=== PATIENT | female | born 1985 | race Caucasian/White ===

== ENCOUNTER 2017-07-08 12:11 | Observation (INO) | payer BC, OTHER ==
[2017-07-08] MEDS ORDERED: Fentanyl 100 MCG/2 ML VIAL ONE (12:33)
[2017-07-08] MEDS ORDERED: Ondansetron HCl/PF 4 MG/2 ML Vial ONE (12:33)
[2017-07-08 12:56] LABS: #Basophils 0.1 thou/uL (0.0-0.2); #Eosinphils 0.1 thou/uL (0.0-0.7); #Lymphocytes 1.8 thou/uL (1.20-3.40); #Monocytes 0.5 thou/uL (0.11-0.59); #Neutrophils 8.7 thou/uL (1.40-6.50); %Basophils 1.1 % (0.0-1.0); %Eosinophils 0.6 % (0.0-10.0); %Monocytes 4.4 % (0.0-10.0); Hemoglobin 14.2 g/dL (12.0-16.0); Mean Corpuscular HGB CONC 35.3 g/dL (32.0-36.0); Mean Corpuscular Hemoglobin 29.4 pg (27.0-31.0); Mean Corpuscular Volume 83.3 fl (81.0-99.0); Mean Platelet Volume 7.8 fL (7.4-10.4); Platelet Count 248 thou/uL (130-400); RBC Distribution Width 11.6 % (11.5-14.5); Red Blood Cell (RBC) Count 4.84 mill/uL (4.20-5.40); White Blood Cell (WBC) Count 11.1 thou/uL (4.8-10.8)
[2017-07-08 13:13] LABS: ALT (SGPT) 21 U/L (8-55); AST (SGOT) 22 U/L (5-34); Albumin 4.3 g/dL (3.5-5.0); Alkaline Phosphatase 74 U/L (40-150); Anion Gap 16 mmol/L (10-20); BUN (Urea Nitrogen) 10 mg/dL (7.0-18.7); Bilirubin, Total 0.9 mg/dL (0.2-1.2); Calc. Creatinine Clearance 0 mL/min (70-130); Calcium 9.4 mg/dL (7.8-10.44); Carbon Dioxide 18 mmol/L (22-29); Chloride 109 mmol/L (98-107); Estimated GFR-MDRD Greater than 90; Globulin 3.6 g/dL (2.4-3.5); Glucose 107 mg/dL (70-105); Lipase 35 U/L (8-78); Potassium 4.1 mmol/L (3.5-5.1); Protein, Total 7.9 g/dL (6.0-8.3); Sodium 139 mmol/L (136-145)
[2017-07-08 14:33] LABS: BHCG - Serum Negative (NEGATIVE); Pregs Control Background? CLEAR/WHITE (CLR/WHITE); Pregs Control Bar Appear? YES (CONTROL BAR)
--- NOTE | 2017-07-08 15:11 | ULT ---
GALLBLADDER ULTRASOUND: HISTORY: Right upper quadrant pain. COMPARISON: None. TECHNIQUE: Utilizing a multihertz transducer, sonographic imaging of the right upper quadrant was performed in t he longitudinal and transverse plane. FINDINGS: Evaluation is overall limited by shadowing bowel gas. Hepatic parenchyma has a heterogeneous echotex ture which may be due to hepatic steatosis or hepatocellular disease. Right hepatic lobe measures 17 .7 cm. Within the lumen of the gallbladder, there are echogenic foci with posterior acoustic shadowing, comp atible with gallstones. There is a 1.4 cm stone in the neck of the gallbladder. Gallbladder wall is not thickened. No pericholecystic fluid. However, horse rider does report a positive Martinez's sign. Common bile duct diameter is 0.5 cm. Suboptimal evaluation of the right kidney. Suboptimal evaluation of the pancreas. IMPRESSION: Findings that are equivocal for cholecystitis. There may be a lodged stone in the neck of the gallbl adder. HIDA scan is recommended. POS: [facility]
[2017-07-08] MEDS ORDERED: diphenhydrAMINE 25 MG CAP PO PRN (16:59)
[2017-07-08] MEDS ORDERED: Calcium Carbonate 500 MG ChewTAB PO PRN (16:59)
[2017-07-08] MEDS ORDERED: Acetaminophen 325 MG TAB PO PRN (16:59)
[2017-07-08] MEDS ORDERED: Ondansetron HCl/PF 4 MG/2 ML Vial IVP PRN (16:59)
[2017-07-08] MEDS ORDERED: Ondansetron ODT 4 MG TAB PO PRN (16:59)
[2017-07-08] MEDS ORDERED: Milk Of Magnesia 30 ML UDCUP PO PRN (16:59)
[2017-07-08] MEDS ORDERED: Acetaminophen 650 MG Suppository PR PRN (16:59)
[2017-07-08] MEDS ORDERED: Sodium Chloride 0.9% 1,000 ML IV SCH (17:02)
[2017-07-08] MEDS ORDERED: HYDROcodone/Acetaminophen 5/325 mg Tablet PO PRN ×2 (17:02)
[2017-07-08 17:10] VITALS: BMI 32.5
--- NOTE | 2017-07-08 17:10 | PDOC.FPRHP ---
- History of Present Illness Chief Complaint: Abdominal pain History of Present Illness: 31 year old female with PMH back injury in 2011 presented to [facility] ED with complaints of abdominal pain that started around 04:00. Pain is localized to RUQ. Patient describes the pain as sharp, intermittent and sporadic. She took pepcid at 05:00 with no relief of symptoms. Her last BM was yesterday. She is currently on her period. Associated symptoms include nausea and vomiting. Last vomit was around 1400. She has not tried to eat due to pain being so intense. She states pain is intermittent with pain meds but constant without. She has never had a similar pain and denies any recent pain after eating. Without pain meds, the pain radiates to her back. ED Course: Abdominal ultrasound showed findings equivocal for choleycystitis. There may be a lodged stone in the neck of the gallbladder. HIDA scan was recommended. Patient was given 4 mg zofran, 2 mg dilaudid and 100 mcg of fentanyl in outside ED. - Allergies/Adverse Reactions Allergies Allergy/AdvReac Type Severity Reaction Status Date / Time morphine Allergy Verified 07/08/17 17:11 - Home Medications Medication Instructions Recorded Confirmed Type No Known [No Known] 07/08/17 07/08/17 History - History PMHx: back injury- factured 4 vertebrae (2011)- no residual deficits PSHx: none FHx:mother/ father- Diabetes and HTN Social: Denies alcohol, drugs, or smoking. - Review of Systems General: denies: fever/chills, fatigue Eyes: denies: eye pain, vision changes ENT: denies: nasal congestion, rhinorrhea Respiratory: denies: cough, congestion, shortness of breath Cardiovascular: denies: chest pain, palpitation Gastrointestinal: reports: nausea, vomiting, abdominal pain. denies: diarrhea, constipation Genitourinary: denies: incontinence, dysuria Skin: denies: rashes, lesions, jaundice Musculoskeletal: reports: pain (back pain). denies: tenderness, swelling, arthritis/arthralgias Neurological: denies: numbness, weakness Psychological: denies: anxiety, depression - Vital signs Wt: 97.16 kg Selected Entries 07/08/17 16:54 Temperature 98.7 F Pulse Rate 87 Blood Pressure 115/57 L [Semi-Fowlers] Respiratory 24 H Rate O2 Sat by Pulse 100 Oximetry Oxygen Delivery Room Air Method - Physical Exam Constitutional: NAD, awake, alert and oriented, well developed HEENT: normocephalic and atraumatic, PERRLA, EOMI, conjunctiva clear, no scleral icterus Neck: supple, FROM Chest: no-tender to palpation Heart: RRR, normal S1/S2, no murmurs/rubs/gallops Lungs: CTAB, no respiratory distress, good air movement, no rales/rhonchi, no wheezing Abdomen: soft -Abdomen: tender to palpation in RUQ, +murphys. mildly tender diffusely, guarding in RUQ, no rigidity Musculoskeletal: normal structure, normal tone Neurological: no focal deficit, CN II-XII intact, normal sensation Skin: no rash/lesions, no jaundice Psychiatric: normal mood and affect FMR H&P: Results - Labs Result Diagrams: 07/08/17 12:45 07/08/17 19:39 Lab results: WBC 11.1 thou/uL (4.8-10.8) H 07/08/17 12:45 Hgb 14.2 g/dL (12.0-16.0) 07/08/17 12:45 Hct 40.3 % (36.0-47.0) 07/08/17 12:45 MCV 83.3 fl (81.0-99.0) 07/08/17 12:45 Plt Count 248 thou/uL (130-400) 07/08/17 12:45 Neutrophils % 78.0 % (42.0-75.0) H 07/08/17 12:45 Sodium 139 mmol/L (136-145) 07/08/17 12:45 Potassium 4.1 mmol/L (3.5-5.1) 07/08/17 12:45 Chloride 109 mmol/L (98-107) H 07/08/17 12:45 Carbon Dioxide 18 mmol/L (22-29) L 07/08/17 12:45 BUN 10 mg/dL (7.0-18.7) 07/08/17 12:45 Creatinine 0.74 mg/dL (0.6-1.1) 07/08/17 12:45 Glucose 107 mg/dL (70-105) H 07/08/17 12:45 Calcium 9.4 mg/dL (7.8-10.44) 07/08/17 12:45 Total Bilirubin 0.9 mg/dL (0.2-1.2) 07/08/17 12:45 AST 22 U/L (5-34) 07/08/17 12:45 ALT 21 U/L (8-55) 07/08/17 12:45 Alkaline Phosphatase 74 U/L (40-150) 07/08/17 12:45 Serum Total Protein 7.9 g/dL (6.0-8.3) 07/08/17 12:45 Albumin 4.3 g/dL (3.5-5.0) 07/08/17 12:45 Lipase 35 U/L (8-78) 07/08/17 12:45 - Radiology Interpretation US - abdomen Status: report reviewed by me Additional comment: Findings equivocal for cholecystitis, possible obstructing stone in neck of gallbladder. recommend HIDA. FMR H&P: A/P - Problem List (1) Biliary colic Current Visit: Yes Status: Acute Code(s): K80.50 - CALCULUS OF BILE DUCT W/ O CHOLANGITIS OR CHOLECYST W/O OBST - Plan Biliary colic - Abdominal U/S equivocal for cholecystitis vs possible obstructing stone in neck of gallbladder, CBD < 0.5 cm, nml LFT and bili - Patient given 2 mg of dilaudid and 100 mcg fentanyl for pain control in outside ED; will continue with fentanyl 50 mcg q2h PRN for pain - HIDA scan in AM - Consider surgical consult pending HIDA scan results - Bentyl for intestinal spasms CODE STATUS: FULL DVT PPX: SCDs Dispo: Obs in telemetry. LOS <48 hours. FMR H&P: Upper Level - Plan Date/Time: 07/08/171709 The above documentation is the upper level, Megan Meneses. Attending Addendum - Attending Addendum Date/Time: 07/08/172057 I personally evaluated the patient and discussed the management with Dr. Medeiros I agree with the History, Examination, Assessment and Plan documented above with any addition or exceptions noted below. Healthy 31 yo female admitted for gallbladder disease. RUQ and epigastric pain progressive over the day. Now 11/20. Associated with nausea, vomitting, and intolerable to foods. Sono suggestive of logded stone. Significant Sharon's sign on exam with guarding. Patient tearful. Labs WNL. Gen surg consulted. 1. Biliary colic with evolving cholecystitis: Gen surg consulted. Awaiting recommendations. Treat pain. Trend labs. NPO. ABrayMD
[2017-07-08] MEDS: Lactated Ringer's 1,000 ML IV SCH (17:37)
[2017-07-08] MEDS: Fentanyl 100 MCG/2 ML VIAL SLOW IVP PRN ×2 (17:37→20:31)
[2017-07-08] MEDS: Dicyclomine 10 MG CAP PO SCH ×2 (17:44→20:31)
[2017-07-08] MEDS ORDERED: Ketorolac Tromethamine 30 MG/ML VIAL IVP SCH ×3 (19:00→23:59)
[2017-07-08 20:06] LABS: ALT (SGPT) 20 U/L (8-55); AST (SGOT) 22 U/L (5-34); Albumin 3.7 g/dL (3.5-5.0); Alkaline Phosphatase 71 U/L (40-150); Anion Gap 13 mmol/L (10-20); BUN (Urea Nitrogen) 9 mg/dL (7.0-18.7); Bilirubin, Total 1.3 mg/dL (0.2-1.2); Calc. Creatinine Clearance 186 mL/min (70-130); Calcium 8.8 mg/dL (7.8-10.44); Carbon Dioxide 17 mmol/L (22-29); Chloride 111 mmol/L (98-107); Estimated GFR-MDRD Greater than 90; Globulin 3.4 g/dL (2.4-3.5); Glucose 88 mg/dL (70-105); Protein, Total 7.1 g/dL (6.0-8.3); Sodium 137 mmol/L (136-145)
[2017-07-08] MEDS ORDERED: Ketorolac Tromethamine 30 MG/ML VIAL IVP PRN (20:30)
[2017-07-08] MEDS: Docusate 100 MG CAP PO SCH (20:30)
[2017-07-08] MEDS ORDERED: Promethazine HCl 25 MG/ML VIAL IM/IV PRN (20:33)
[2017-07-08] MEDS ORDERED: Meperidine HCl/PF 25 MG/ML VIAL SLOW IVP SCH (20:45)
[2017-07-08] MEDS: cefOXitin 2 GM in Sodium Chloride 0.9% 100 ML IVPB SCH (21:28)
--- NOTE | 2017-07-08 22:23 | CON ---
DATE OF CONSULTATION: 07/08/2017 CHIEF COMPLAINT: Right upper quadrant abdominal pain. HISTORY OF PRESENT ILLNESS: Patient is a 31-year-old overweight white female. She had onset of righ t upper quadrant abdominal pain radiating through to her back about 4:00 this morning. She initially thought that this was reflux and tried to self-medicate with Pepcid without success. The pain becam e worse and she had episode of vomiting, she presented to the emergency room. In the emergency room, she was evaluated with laboratory and radiologic studies. Her laboratory studies revealed a compreh ensive metabolic panel this is essentially unremarkable. Carbon dioxide level is a little low at 18, nothing else was of significance. Her CBC did reveal an elevated white blood cell count of 11.1 wit h hemoglobin of 14.2. Liver function tests were normal at that time. Repeat comprehensive metabolic panel this evening reveals bilirubin level that has gone from 0.9 to 1.3. She notes that she has never had this pain before. She was unaware that she had gallstones. The grecia n radiating through to her back has resolved. Her lipase level initially was negative as was her test. The radiologic study obtained was an ultrasound, which did reveal cholelithiasis, but without definite evidence of acute cholecystitis . There was no evidence of ductal dilatation. The emergency room physician admitted the patient to the Family Medicine Service was consulted me for further evaluation. PAST MEDICAL HISTORY: Significant for intermittent pain associated with a history of back injury 6 y ears ago. She does have a history of 4 vertebral fractures. PAST SURGICAL HISTORY: [place] tooth extraction. MEDICATIONS: Occasional tramadol and hydrocodone. ALLERGIES: To morphine, which produces rash. PERSONAL/SOCIAL HISTORY: She lives in [place]. She is . Her is present at bedside. S he does not have children. She works at [employer]. She does not smoke and drinks alco hol occasionally. She does not have a primary care physician. REVIEW OF SYSTEMS: Otherwise, unremarkable. FAMILY HISTORY: Noncontributory. PHYSICAL EXAMINATION: VITAL SIGNS: She is afebrile, pulse is 70, blood pressure is 110/56. GENERAL: She is a well-developed, well-nourished, pleasant white female resting in bed. She appears uncomfortable. She is alert and oriented x3 and conversant. HEAD, EYES, EARS, NOSE, THROAT: Unremarkable. NECK: Supple without mass or tenderness. LUNGS: Clear to auscultation throughout. CARDIAC: Regular rate and rhythm without murmur. ABDOMEN: Soft with focal tenderness in the right upper quadrant and no discomfort elsewhere. EXTREMITIES: Unremarkable. ASSESSMENT: Patient with findings consistent with acute cholecystitis. PLAN: She has been admitted and started on IV antibiotics. Her pain is being controlled with fentan yl and ketorolac. I have recommended with HIDA scan that was ordered to be canceled and we will proc eed with laparoscopic cholecystectomy in the morning. I have discussed the operation in detail with the patient as well as potential risks. She understands and agrees to proceed the surgery at this ti me.
[2017-07-09] MEDS: Lactated Ringer's 1,000 ML IV SCH ×2 (01:30→08:00)
[2017-07-09] MEDS: Fentanyl 100 MCG/2 ML VIAL SLOW IVP PRN ×2 (02:06→06:29)
[2017-07-09] MEDS: cefOXitin 2 GM in Sodium Chloride 0.9% 100 ML IVPB SCH ×2 (03:45→11:33)
[2017-07-09] MEDS: Ketorolac Tromethamine 30 MG/ML VIAL IVP PRN ×2 (03:46→11:33)
[2017-07-09 06:44] LABS: ALT (SGPT) 15 U/L (8-55); AST (SGOT) 14 U/L (5-34); Albumin 3.2 g/dL (3.5-5.0); Alkaline Phosphatase 60 U/L (40-150); Anion Gap 9 mmol/L (10-20); BUN (Urea Nitrogen) 7 mg/dL (7.0-18.7); Bilirubin, Total 1.9 mg/dL (0.2-1.2); Calc. Creatinine Clearance 183 mL/min (70-130); Calcium 7.9 mg/dL (7.8-10.44); Carbon Dioxide 23 mmol/L (22-29); Chloride 109 mmol/L (98-107); Estimated GFR-MDRD Greater than 90; Globulin 2.5 g/dL (2.4-3.5); Glucose 81 mg/dL (70-105); Potassium 3.4 mmol/L (3.5-5.1); Protein, Total 5.7 g/dL (6.0-8.3); Sodium 138 mmol/L (136-145)
--- NOTE | 2017-07-09 06:51 | PDOC.FM ---
- Subjective Subjective: Patient doing well post-operatively. She is in a mild amount of pain due to recent surgery. She has been up and ambulating with minimal difficulty. Patient is tolerating PO and passing flatus. She states she feels motivated to go home and recover. - Objective MAR Reviewed: Yes Vital Signs & Weight: Vital Signs (12 hours) Temp Pulse Resp BP Pulse Ox 07/09/17 03:55 98.7 F 71 16 110/61 99 07/08/17 23:00 98.1 F 64 16 101/56 L 97 07/08/17 20:00 98.3 F 70 20 07/08/17 19:49 98.3 F 70 20 110/56 L 100 Weight Weight 97.159 kg I&O: 07/07/17 07/08/17 07/09/17 06:59 06:59 06:59 Intake Total 1234 Balance 1234 Result Diagrams: 07/09/17 03:20 07/09/17 05:58 EKG Reviewed by me: No Radiology Reviewed by me: No <Kiesha Campos - Last Filed: 07/09/17 14:25> - Objective Vital Signs & Weight: Vital Signs (12 hours) Temp Pulse Resp BP Pulse Ox 07/09/17 12:24 98.0 F 76 16 102/56 L 95 07/09/17 11:55 80 16 102/58 L 94 L 07/09/17 11:30 97.8 F 85 16 106/62 95 07/09/17 11:11 98.4 F 80 18 107/59 L 98 07/09/17 07:25 98.7 F 71 16 07/09/17 07:09 98.3 F 85 16 107/61 98 Weight Weight 97.159 kg I&O: 07/08/17 07/09/17 07/10/17 06:59 06:59 06:59 Intake Total 1234 Balance 1234 Result Diagrams: 07/09/17 03:20 07/09/17 05:58 <David Cabrera - Last Filed: 07/09/17 16:50> Phys Exam - Physical Examination Constitutional: NAD HEENT: moist MMs, sclera anicteric Neck: supple Respiratory: no wheezing, clear to auscultation bilateral Cardiovascular: RRR, no significant murmur Gastrointestinal: soft, no distention, positive bowel sounds mildly tender 2/2 recent surgery Musculoskeletal: no edema, pulses present Neurological: non-focal, moves all 4 limbs Psychiatric: normal affect, A&O x 3 Skin: no rash, cap refill <2 seconds <Kiesha Campos - Last Filed: 07/09/17 14:25> Dx/Plan (1) Acute cholecystitis Code(s): K81.0 - ACUTE CHOLECYSTITIS Status: Acute (2) Biliary colic Code(s): K80.50 - CALCULUS OF BILE DUCT W/O CHOLANGITIS OR CHOLECYST W/O OBST Status: Acute - Plan Plan: Acute cholecystitis - Abdominal U/S equivocal for cholecystitis vs possible obstructing stone in neck of gallbladder, CBD < 0.5 cm, nml LFT and bili - Clinical findings of cholecystitis - Patient given 2 mg of dilaudid and 100 mcg fentanyl for pain control in outside ED; will continue with fentanyl 50 mcg q2h PRN for pain - General surgery consulted; appreciate recs - Plan for laparoscopic cholecystectomy today - Bentyl for intestinal spasms CODE STATUS: FULL DVT PPX: SCDs Dispo: Obs in telemetry. Plan for cholecystectomy today. Further management pending general surgery recs. Pt s/p cholecystectomy. Ambulating and tolerating PO. Will d/c home. F/u with Dr. Leonard in 2 weeks. Establish with PCP. <Kiesha Campos - Last Filed: 07/09/17 14:25> Attending Addendum - Attending Addendum Date/Time: 07/09/17 [id number] I personally evaluated the patient and discussed the management with Dr. Campos and Dr Leonard post op today. I agree with the History, Examination, Assessment and Plan documented above with any addition or exceptions noted below. Discussed her care with Dr Leonard. He advised discharge once she was able to take food. <David Cabrera - Last Filed: 07/09/17 16:50>
[2017-07-09 07:17] LABS: #Eosinphils 0.4 thou/uL (0.0-0.7); #Lymphocytes 3.9 thou/uL (1.20-3.40); #Monocytes 0.8 thou/uL (0.11-0.59); #Neutrophils 6.2 thou/uL (1.40-6.50); %Basophils 0.4 % (0.0-1.0); %Eosinophils 3.7 % (0.0-10.0); %Lymphocytes 34.4 % (21.0-51.0); %Monocytes 7.3 % (0.0-10.0); %Neutrophils 54.3 % (42.0-75.0); Hemoglobin 11.7 g/dL (12.0-16.0); Mean Corpuscular HGB CONC 33.2 g/dL (32.0-36.0); Mean Corpuscular Hemoglobin 28.7 pg (27.0-31.0); Mean Corpuscular Volume 86.6 fl (81.0-99.0); Mean Platelet Volume 8.5 fL (7.4-10.4); Platelet Count 204 thou/uL (130-400); Red Blood Cell (RBC) Count 4.09 mill/uL (4.20-5.40); White Blood Cell (WBC) Count 11.3 thou/uL (4.8-10.8)
[2017-07-09] MEDS ORDERED: Fentanyl 100 MCG/2 ML VIAL ONE ×3 (07:58→10:44)
[2017-07-09] MEDS: Docusate 100 MG CAP PO SCH (08:00)
[2017-07-09] MEDS: Dicyclomine 10 MG CAP PO SCH ×2 (08:00→11:34)
[2017-07-09] MEDS ORDERED: Bupivacaine/Epinephrine 0.25% 30 ML VIAL ONE (08:47)
[2017-07-09] MEDS ORDERED: Meperidine HCl/PF 25 MG/ML VIAL SLOW IVP PRN (10:35)
[2017-07-09] MEDS ORDERED: Promethazine HCl 25 MG/ML VIAL IM PRN (10:35)
[2017-07-09] MEDS ORDERED: Promethazine HCl 25 MG/ML VIAL SLOW IVP PRN (10:35)
[2017-07-09] MEDS ORDERED: PROPOFOL 200 MG/20 ML VIAL ONE (11:44)
[2017-07-09] MEDS ORDERED: Ondansetron HCl/PF 4 MG/2 ML Vial ONE (11:44)
[2017-07-09] MEDS ORDERED: Lidocaine 1% PF 5 ML VIAL ONE (11:44)
[2017-07-09] MEDS ORDERED: Ketorolac Tromethamine 30 MG/ML VIAL ONE (11:44)
[2017-07-09] MEDS ORDERED: Dexamethasone 20 MG/5 ML VIAL ONE (11:44)
[2017-07-09] MEDS ORDERED: Glycopyrrolate 0.2 MG/ML 5 ML SYRINGE ONE (11:44)
[2017-07-09] MEDS ORDERED: diphenhydrAMINE 50 MG/ML VIAL ONE (11:44)
[2017-07-09] MEDS ORDERED: HYDROcodone/Acetaminophen 7.5/325 mg Tablet PO PRN ×2 (11:54)
[2017-07-09 12:25] VITALS: BP 102/56; TEMP 98
--- NOTE | 2017-07-09 17:01 | OP ---
DATE OF PROCEDURE: 07/09/2017 PREOPERATIVE DIAGNOSIS: Acute cholecystitis. POSTOPERATIVE DIAGNOSIS: Acute cholecystitis. OPERATION PERFORMED: Laparoscopic cholecystectomy. SURGEON: Familia Leonard M.D. ANESTHESIA: General endotracheal. INDICATIONS: The patient is a 31-year-old white female. She presented to the hospital with findings consistent with acute cholecystitis. She was taken to the operating room at this time for laparosco pic cholecystectomy. PROCEDURE IN DETAIL: Informed consent was obtained. The patient was taken to the operating room whe re general endotracheal anesthesia was obtained with the patient in the supine position. The abdomen was prepped with Betadine and draped in the usual sterile fashion. Quarter percent Marcaine with ep inephrine was infiltrated below the umbilicus and a 10 mm infraumbilical incision was created. A Ivette ess needle was passed through this incision into the peritoneal cavity. A pneumoperitoneum was estab lished using carbon dioxide up to a pressure of 15 mmHg. Local anesthetic was infiltrated and three additional 5 mm right upper quadrant incisions were created. Through the mid incision, a 5 mm port w as passed into the peritoneal cavity. The camera was passed through this port and under direct visio n, an 11 port is passed through the infraumbilical incision. The camera was replaced through this port, and under dir ect vision, two additional 5 mm ports were passed through the incisions already created. The gallbladder was grasped and retracted in a cephalad direction. Minimal adhesions were bluntly st ripped away from the apex of the gallbladder, and the apex was retracted laterally and inferiorly. C areful dissection was carried out to the apex of the gallbladder to identify the cystic duct and cyst ic artery. These were each carefully dissected circumferentially. The duct was of normal caliber. Both the duct and the artery were divided between clips leaving two on the side to remain within the abdomen. The gallbladder was then dissected out of the gallbladder fossa using electrocautery and re moved through the infraumbilical port site. The fascia was closed with 0 Vicryl suture and a GraNee needle. The right upper quadrant was inspected and irrigated. All irrigant was aspirated. All port s and instruments were removed under direct vision. Pneumoperitoneum was carefully evacuated. Addit ional local anesthetic was infiltrated into each port site. The skin edges were approximated with 4- 0 Monocryl subcuticular sutures, and Dermabond was placed externally. There were no complications. The patient tolerated the procedure well and was taken to the Recovery Room in stable condition. FINDINGS: The patient's gallbladder was distended and somewhat inflamed. There were some omental ad hesions that were easy to strip away. The gallbladder contents were somewhat mucoid, but mostly bili atul. There were a couple of large obstructing stones within the gallbladder. The anatomy was within normal limits and the duct was not significantly distended. There were no complications and minimal blood loss. The patient tolerated the procedure well and was taken to recovery room in stable condi tion.
--- NOTE | 2017-07-10 13:42 | DIS-2 ---
DATE OF ADMISSION: 07/08/2017 DATE OF DISCHARGE: 07/09/2017 ADMITTING ATTENDING: Dr. Cj Gray DISCHARGE ATTENDING: Dr. David Cabrera RESIDENT: Dr. Kiesha Campos CONSULTATIONS: General Surgery, Dr. Familia Leonard PROCEDURES: 1. Abdomen ultrasound, findings equivocal for cholecystitis. There may be lodged down in the neck o f gallbladder. HIDA scan was recommended. 2. Laparoscopic cholecystectomy. PRIMARY DIAGNOSES: Acute cholecystitis. DISCHARGE MEDICATIONS: 1. Docusate 100 mg oral twice daily. 2. Dicyclomine 10 mg oral 4 times daily as needed. HISTORY OF PRESENT ILLNESS AND HOSPITAL COURSE: This is a 31-year-old female with past medical histo ry of back injury in 2011 that presented to [facility] Emergency Department with complaint s of abdominal pain which started at 4:00 a.m. the day of arrival. Pain was localized to right upper quadrant. The patient described the pain as sharp, intermittent, and sporadic. She took Pepcid at 5:00 a.m. with no relief of symptoms. Last bowel movement was day prior to arrival. The patient's s ymptoms include nausea and vomiting. Last episode of emesis was around 1400. The patient had not tr ied to eat all day due to pain being so intense. The pain medications given at the outside ED which included Dilaudid and fentanyl helped to reduce the pain. She has not had similar pain in the past a nd denies any recent pain after eating. Without pain medication the pain does radiate to her back. The patient remained stable throughout the course of her hospital stay. Upon transfer to [facility] and after evaluation, General Surgery was consulted due to concerns for acute jose cystitis. Dr. Leonard did come and evaluate the patient and agreed that the patient's symptoms were consistent with acute cholecystitis. She was admitted and started on IV antibiotics with pain contro l utilizing fentanyl and Toradol. Initially, a HIDA scan was ordered due to an equivocal abdominal u ltrasound, however, the patient's symptoms were concerning enough that General Surgery decided to ketty e her back the next morning for laparoscopic cholecystectomy without having the HIDA scan performed. The patient underwent a laparoscopic cholecystectomy on 07/09/2017. The patient's gallbladder was n oted to be distended and inflamed. There were omental adhesions that were easy to strip away. The g allbladder contents were mucoid, mostly biliary. There were a couple of large obstructing stones wit hin the gallbladder. The anatomy was within normal limits and the duct was not significantly distend ed. There were no complications and minimal blood loss. The patient tolerated the procedure well an d was stable for discharge to the day of surgery. The patient was able to tolerate p.o. and ambulate with only minimal pain a few hours after surgery w as performed. She felt good to being able to go home and recover in the comfort of family and friend s. Since the patient was doing so well she was discharged home with return precautions. DISPOSITION: Stable. DISCHARGE INSTRUCTIONS: 1. Location: Home. 2. Activity: As tolerated. 3. Diet: Regular. 4. Followup: The patient is to follow with Dr. Leonard within 14 days postoperatively. She is to c all to make this appointment. The patient is aware that this needs to be done. Additionally, the rody bautista is to follow with her out of town physician within 7 days of discharge from the hospital to ens ure she is being followed appropriately. The patient is in understanding of this plan and agreeable.
== END 2017-07-09 15:00 | disposition home or self-care (01) ==
LOC: SCSER 12:11 → 2SW 15:03
PROVIDERS: ADMIT Family Medicine; ATTEND Family Medicine
PROC: 0FT44ZZ Resection of Gallbladder, Percutaneous Endoscopic Approach (ICD-10-PCS; principal; 2017-07-09)
DX: K80.12 Calculus of gallbladder with acute and chronic cholecystitis without obstruction (principal); K66.0 Peritoneal adhesions (postprocedural) (postinfection); E66.3 Overweight; Z68.36 Body mass index [BMI] 36.0-36.9, adult; Z88.5 Allergy status to narcotic agent
CPT/HCPCS: 36415; 76705; 80053; 83690; 84703; 85025; 88304; 96361; 96365; 96374; 96375; 96376; G0378; J0694; J1100; J1170; J1200; J1885; J2001; J2405; J2550; J2704; J3010; J7050; Q0162

== ENCOUNTER 2018-02-19 12:25 | Outpatient (CLI) | payer OTHER ==
--- NOTE | 2018-02-19 15:32 | RAD ---
HYSTEROSALPINGOGRAM: INDICATIONS: A 32-year-old 0, para 0. Last menstrual period one week ago. Infertility. FINDINGS: The internal cervical os is stenotic, and there is pain with dilatation, using the sound. An HSG cat heter did not pass through the endocervical os and was stationed in the endocervical canal. Water-so luble contrast was injected. There is narrowing in the lower uterine segment, just beyond the internet architect al os. Otherwise, the endometrial cavity appears normal. The uterus is deviated to the right. Both fallopian tubes opacify quickly. The fimbria appear unremarkable, and there is spill noted from both fimbria. IMPRESSION: 1. Stenotic internal os with narrowing in the endometrial cavity, at the lower uterine segment, lead ing to the internal os. 2. The uterus is deviated to the right. 3. Fallopian tubes are patent. PROCEDURE NOTE: The patient was placed in the lithotomy position. A sterile speculum was placed. The cervix was juan aned with Betadine. The cervical canal was sounded. There was pain with penetration through the int ernal cervical os, which was stenotic. An HSG catheter was advanced into the endocervical canal but would not pass beyond the os. The balloon was inflated with the catheter in the endocervical canal. Water-soluble contrast was injected under fluoroscopic observation. Multiple films were obtained wh ile filling the endometrial cavity and fallopian tubes. There were no problems or complications. POS: [facility]
== END 2018-02-19 12:26 | disposition home or self-care (01) ==
LOC: RAD 12:25
PROVIDERS: ATTEND Obstetrics & Gynecology
DX: Z31.41 Encounter for fertility testing (principal); N88.2 Stricture and stenosis of cervix uteri
CPT/HCPCS: 58340; 74740